=== PATIENT | male | born 1980 | race Two or more races ===

== ENCOUNTER 2021-02-19 18:11 | Emergency (ER) | payer SELFPAY ==
[~2021-02-19] VITALS: Ht 175.3 cm; Wt 86.2 kg
[2021-02-19 21:14] LABS: Basophils # (auto) 0.1 10 ^3/uL (0-0.2); Basophils % (auto) 1.1 % (0.0-2.0); Eosinophils # (auto) 0.5 10 ^3/uL (0-0.8); Eosinophils % (auto) 10.5 % (0.0-7.0); Hematocrit 37.5 % (41.0-53.0); Hemoglobin 13.2 g/dL (13.5-17.5); Lymphocytes # (auto) 1.4 10 ^3/uL (0.4-5.4); Lymphocytes % (auto) 27.4 % (10.0-50.0); Mean Corpuscular Hemoglobin 31.1 pg (28.0-32.0); Mean Corpuscular Hgb Conc. 35.2 g/dL (32.0-36.0); Mean Corpuscular Volume 88.4 fL (80.0-100.0); Monocytes # (auto) 0.3 10 ^3/uL (0-1.3); Monocytes % (auto) 6.7 % (0.0-12.0); Neutrophils # (auto) 2.7 10 ^3/uL (1.6-8.6); Neutrophils % (auto) 54.3 % (37.0-80.0); Nucleated Red Blood Cells % 0.2 %; Platelet Count (auto) 216 10^3/uL (140-450); Red Blood Cells 4.25 10^6/uL (4.5-5.90); Red Cell Distribution Width 12.7 % (11.8-14.3); White Blood Cell 4.9 10^3/uL (4.4-10.8)
[2021-02-19 21:29] LABS: INR 1.01 (0.9-1.15)
[2021-02-19 21:41] LABS: Albumin 3.6 g/dL (3.4-5.0); BUN/Creatinine Ratio 12.4; Calcium 8.5 mg/dL (8.5-10.1); Magnesium 1.9 mg/dL (1.6-2.6); Potassium 3.9 mmol/L (3.5-5.1)
[2021-02-19 21:44] LABS: Bilirubin, Total 0.5 mg/dL (0.2-1.0); Total Protein 9.4 g/dL (6.4-8.2)
[2021-02-20] VITALS: BP 110/68
== END 2021-02-20 00:20 | disposition left against medical advice (07) ==
LOC: ER 18:13
DX: M54.5 Low back pain (principal); R53.1 Weakness; Z87.891 Personal history of nicotine dependence; W18.39XA Other fall on same level, initial encounter; Y93.89 Activity, other specified; Y92.89 Other specified places as the place of occurrence of the external cause; Y99.8 Other external cause status
CPT/HCPCS: 36415; 72128; 72131; 80053; 83735; 85025; 85610